=== PATIENT | male | born 1995 | race Caucasian/White ===

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

== ENCOUNTER 2018-05-13 13:35 | Emergency (ER) | payer BC, OTHER ==
[~2018-05-13] VITALS: Ht 167.6 cm; Wt 79.9 kg
[~2018-05-13 13:35] MED LIST changes: +IBUP-1542 PO
[2018-05-13 14:55] VITALS: Ht 167.6 cm; Wt 79.9 kg
[2018-05-13] MEDS ORDERED: IBUPROFEN 600 MG TAB PO ONE (16:00)
[2018-05-13] MEDS ORDERED: IBUP-1542 PO (17:26)
--- NOTE | 2018-05-13 17:30 | ERD ---
ER Documentation Chief Complaint Chief Complaint righ foot pain after playing basketball sunday HPI 23-year-old male presents with pain in his right foot after twisting it playing basketball last week. He has pain with ambulation. Patient has a history of stress fracture in his right foot. Is no fevers, redness, deficits. Denies other injury. ROS All systems reviewed and are negative except as per history of present illness. Medications Home Meds Active Scripts Ibuprofen* (Motrin*) 600 Mg Tab, 600 MG PO Q6, #20 TAB Prov:GILA KRAMER MD 05/13/18 Ibuprofen* (Motrin*) 600 Mg Tab, 600 MG PO Q6, #15 TAB Prov:GILA KRAMER MD 12/28/16 Neomycin/Polymyxin/Hydrocort* (Cortisporin* Otic) 10 Ml Susp, 4 DROP LEFT EAR QI D for 7 Days, EA Prov:AGUS DHILLON VIROLOGY TEACHER 08/18/14 Amoxicillin* (Amoxicillin* Susp) 400 Mg/5 Ml Susp.recon, 5 ML PO Q8 for 10 Days, BOTTLE Prov:AGUS DHILLON VIROLOGY TEACHER 08/18/14 Allergies Allergies: Coded Allergies: No Known Allergy (Unverified , 08/18/14) PMhx/Soc Medical and Surgical Hx: pt denies Medical Hx, pt denies Surgical Hx History of Surgery: No Anesthesia Reaction: No Hx Neurological Disorder: No Hx Respiratory Disorders: No Hx Cardiac Disorders: No Hx Psychiatric Problems: No Hx Miscellaneous Medical Probl: No Hx Alcohol Use: No Hx Substance Use: No Hx Tobacco Use: No Smoking Status: Never smoker FmHx Family History: No diabetes, No coronary disease, No other Physical Exam Vitals Vital Signs Date Temp Pulse Resp B/P (MAP) Pulse Ox O2 O2 Flow FiO2 Time Delivery Rate 05/13/18 98.3 103 18 141/67 98 14:55 (91) Physical Exam Const: No acute distress Head: Atraumatic Eyes: Normal Conjunctiva ENT: Normal External Ears, Nose and Mouth. Neck: Full range of motion. No meningismus. Resp: Clear to auscultation bilaterally Cardio: Regular rate and rhythm, no murmurs Abd: Soft, non tender, non distended. Normal bowel sounds Skin: No petechiae or rashes Back: No midline or flank tenderness Ext: No cyanosis, or edema. Tenderness primarily over the first metatarsal phalangeal joint and right first metatarsal area. Mild soft tissue swelling. No restricted range of motion or deficits no warmth erythema or bleeding. Neur: Awake and alert Psych: Normal Mood and Affect Results 24 hrs Current Medications Medications Dose Sig/Yin Start Time Status Last (Trade) Ordered Route PRN Stop Time Admin Dose Reason Admin Ibuprofen 600 mg ONCE ONCE 05/13/18 DC 05/13/18 (Motrin) PO 16:00 16:01 05/13/18 16:01 Procedures/MDM X-ray right foot 3V Interpreted by me: Bones: No fracture Joints: No dislocation Foreign body: None. Impression-soft tissue swelling without appreciable fracture dislocation. Patient is placed in a right lower extremity walker boot and was neurovascular intact of the boot. Also given crutches with crutch training. Patient presents with right foot pain after twisting it last week. He has no current signs of acute fracture dislocation although patient will be discharged home with nonweightbearing as instructed, orthopedic and primary care follow-up and repeat x-ray in 10-14 days for persistent pain to evaluate for stress fracture. He has no signs of septic arthritis, ischemia, deficits, additional complications. The patient was stable with no new complaints during the ER course. Clinically, there is no current evidence to suggest meningitis, sepsis, acute abdomen, pneumonia, stroke, acute coronary syndrome, pulmonary embolism, aortic dissection or any other emergent condition appearing to require further evaluation or hospitalization. Patient counseled regarding my diagnostic impression and care plan. Prior to discharge all questions answered. Pt agrees with treatment plan and understands strict return precautions. Pt is instructed to follow up with primary care provider within 24-48 hours. Precautionary instructions provided including instructions to return to the ER if not improving or for any worsening or changing symptoms or concerns. Departure Diagnosis: Primary Impression: Injury of foot, left Encounter type: initial encounter Qualified Codes: S99.922A - Unspecified injury of left foot, initial encounter Condition: Stable Patient Instructions: Sprain Foot Referrals: DALY CRAVEN MD Additional Instructions: No abnormality seen on x-ray. Recommend limited weightbearing if has pain. See primary doctor and orthopedist for further evaluation treatment. Repeat x-ray in 10-14 days for persistent pain. May need authorization from primary doctor for orthopedist visit. GILA KRAMER MD May 13, 2018 17:30
[2018-05-13 17:51] VITALS: BP 138/62; PULSE 88; RESP 18
== END 2018-05-13 17:53 | disposition home or self-care (01) ==
LOC: FTE 13:35
DX: S99.922A Unspecified injury of left foot, initial encounter (principal); X50.1XXA Overexertion from prolonged static or awkward postures, initial encounter; Y92.9 Unspecified place or not applicable
CPT/HCPCS: 73630; Z7502; Z7610

== ENCOUNTER 2018-06-03 18:20 | Emergency (ER) | payer SELFPAY ==
[~2018-06-03] VITALS: Wt 79.2 kg
[2018-06-03 19:12] VITALS: BP 153/70; PULSE 97; RESP 18
== END 2018-06-03 22:16 | disposition left against medical advice (07) ==
LOC: FTE 18:20
DX: Z53.21 Procedure and treatment not carried out due to patient leaving prior to being seen by health care provider (principal)

== ENCOUNTER 2018-08-22 16:47 | Emergency (ER) | payer OTHER ==
[~2018-08-22] VITALS: Ht 160 cm; Wt 76.2 kg
[2018-08-22 17:04] VITALS: Ht 160 cm; Wt 76.2 kg
--- NOTE | 2018-08-22 19:02 | ERD ---
ER Documentation Chief Complaint Chief Complaint RIGHT EAR PAIN X 4 DAYS HPI 23-year-old male presents with pain to his right ear for the past 4 days. Denies any discharge from the ear. Denies any fevers. Denies any hearing problems. Denies any treatments. Has history of heart murmur as well as hypertension. ROS All systems reviewed and are negative except as per history of present illness. Medications Home Meds Active Scripts Carbamide Peroxide* (Debrox*) 6.5% -15 Ml Drops, 10 DROP BOTH EARS BID, #1 EA Prov:DULCE ROJAS 08/22/18 Acetaminophen* (Tylophen*) 500 Mg Capsule, 1 CAP PO Q6H PRN for PAIN AND OR ANUSHA VATED TEMP, #20 CAP Prov:DULCE ROJAS 08/22/18 Amoxicillin* (Amoxicillin*) 500 Mg Cap, 500 MG PO TID for 10 Days, CAP Prov:DULCE ROJAS 08/22/18 Ibuprofen* (Motrin*) 600 Mg Tab, 600 MG PO Q6, #20 TAB Prov:GILA KRAMER MD 05/13/18 Ibuprofen* (Motrin*) 600 Mg Tab, 600 MG PO Q6, #15 TAB Prov:GILA KRAMER MD 12/28/16 Neomycin/Polymyxin/Hydrocort* (Cortisporin* Otic) 10 Ml Susp, 4 DROP LEFT EAR QID for 7 Days, EA Prov:AGUS DHILLON NP 08/18/14 Amoxicillin* (Amoxicillin* Susp) 400 Mg/5 Ml Susp.recon, 5 ML PO Q8 for 10 Days, BOTTLE Prov:AGUS DHILLON NP 08/18/14 Allergies Allergies: Coded Allergies: No Known Allergy (Unverified , 08/18/14) PMhx/Soc History of Surgery: No Anesthesia Reaction: No Hx Neurological Disorder: No Hx Respiratory Disorders: No Hx Cardiac Disorders: No Hx Psychiatric Problems: No Hx Miscellaneous Medical Probl: No Hx Alcohol Use: No Hx Substance Use: No Hx Tobacco Use: No FmHx Family History: No diabetes, No coronary disease, No other Physical Exam Vitals Vital Signs Date Temp Pulse Resp B/P (MAP) Pulse Ox O2 O2 Flow FiO2 Time Delivery Rate 08/22/18 97.9 91 18 133/84 97 17:04 (100) Physical Exam Const: No acute distress Head: Atraumatic Eyes: Normal Conjunctiva ENT: Normal External Ears, Nose and Mouth. Mastoids are nonedematous, erythematous, tender to palpation bilaterally. Right ear canal is occluded with cerumen. There is no discharge noted. Neck: Full range of motion. No meningismus. Resp: Clear to auscultation bilaterally Cardio: Regular rate and rhythm, no murmurs Abd: Soft, non tender, non distended. Normal bowel sounds Skin: No petechiae or rashes Back: No midline or flank tenderness Ext: No cyanosis, or edema Neur: Awake and alert Psych: Normal Mood and Affect Procedures/MDM MDM: Ear lavage was unsuccessful so patient was referred to ENT for cerumen removal. In addition patient's was prescribed Debrox and told to try some removal at home. Patient does complain of pain so I will cover for possible otitis media with amoxicillin. Patient was given Tylenol for pain. I have low suspicion for mastoiditis due to lack of erythema, edema, or ttp over mastoid area. I have low suspicion for intercranial abscess due to lack of ADAMSON or focal neurological findings. I have low suspicion of TM rupture or trauma based on lack of hearing loss, vertigo, and PE findings. Most likely diagnosis is acute otitis media. Based on these findings I do not feel that additional labs or imaging is necessary. Patient discharged with RX for amoxicillin and ibuprofin for pain. Patient discharged with strict ER precautions. Patient was recommended to follow-up with PMD. All questions answered at discharge. Departure Diagnosis: Primary Impression: Cerumen impaction Additional Impression: Otitis media Condition: Stable DULCE ROJAS Aug 22, 2018 19:02
[2018-08-22] MEDS ORDERED: ACET500C5 PO (20:25)
[2018-08-22] MEDS ORDERED: AMOX500C2 PO (20:25)
[2018-08-22] MEDS ORDERED: CARB-155 BOTH EARS (20:27)
[2018-08-22 20:45] VITALS: BP 139/63; PULSE 77; RESP 18
== END 2018-08-22 20:47 | disposition home or self-care (01) ==
LOC: FTE 16:47
DX: H61.21 Impacted cerumen, right ear (principal); H66.91 Otitis media, unspecified, right ear
CPT/HCPCS: 99283